=== PATIENT | male | born 1955 | race Caucasian/White ===

== ENCOUNTER 2019-01-21 10:02 | Day surgery (SDC) | payer MEDICARE, OTHER ==
[~2019-01-21 10:02] MED LIST: KETOROLAC TROMETHAMINE 0.45% 4 DROP/0.4 ML DROPERETTE OD PRN
[2019-01-21] MEDS: BESIFLOXACIN HCL 0.6% OPH SUSP 5 ML BOTTLE OD PRN ×4 (11:10→12:27)
[2019-01-21] MEDS: TROPICAMIDE 1% OPH SOLN 3 ML OD PRN ×3 (11:10→11:30)
[2019-01-21] MEDS: CYCLOPENTOLATE 0.2%/PHENYLEPHRINE 1% OPH SOLN 2 ML OD PRN ×3 (11:10→11:30)
[2019-01-21] MEDS: TETRACAINE HCL 0.5% OPH SOLN 4 ML OD PRN ×3 (11:11→11:52)
[2019-01-21] MEDS ORDERED: FENTANYL CITRATE INJ/PF 100 MCG/2 ML AMPUL ONE (11:33)
[2019-01-21] MEDS ORDERED: MIDAZOLAM 2 MG/2 ML INJ ONE (11:33)
[2019-01-21] MEDS: LIDOCAINE 4% INJ/PF (40 MG/ML) 5 ML AMPUL OD PRN ×2 (12:01)
[2019-01-21] MEDS: BUPIVACAINE HCL 0.75% INJ/PF (7.5 MG/1 ML) 10 ML SDV OD PRN ×2 (12:01)
[2019-01-21] MEDS: CHONDR SU A NA/HYALUR INTRAOC KIT (SURGICARE) ONE ×2 (12:09)
[2019-01-21] MEDS: EPINEPHRINE INJ/PF 1 MG/1 ML AMPULE ONE ×2 (12:09)
[2019-01-21] MEDS: LIDOCAINE 1%/PHENYLEPHRINE 1.5% 1 ML VIAL ONE ×2 (12:12)
[2019-01-21] MEDS: DORZOLAMIDE HCL 2%/TIMOLOL MALEAT 0.5% OPH SOLN 10 ML OD PRN ×2 (12:27)
--- NOTE | 2019-01-21 19:54 | [facility] OPERATIVE REPORT E ---
[facility] Operative Report NAME: LYNN DAVIDSON AGE: 63Y DATE OF SURGERY: 01/21/2019 ROOM: PREOPERATIVE DIAGNOSIS: CATARACT, RIGHT EYE. POSTOPERATIVE DIAGNOSIS: CATARACT, RIGHT EYE. OPERATION: Phacoemulsification with Symfony intraocular lens implant, right eye. SURGEON: DEBBIE CONTRERAS M.D. ANESTHESIA: Topical with MAC. INDICATIONS FOR SURGERY: Difficulty driving. PROCEDURE: The patient was brought to the Operating Room and placed on the operative table. Following tetracaine drops, topical anesthesia was administered. This consisted of instrument wipe pledgets soaked in a solution of 4% Xylocaine mixed with 0.75% Marcaine in a 1:2 ratio. A 2 x 1 cm pledget was placed in the superior fornix. A 1 x 1 cm pledget was placed in the inferior fornix. The eye was patched shut for 5 minutes. The patch was removed. The eye was sterilely prepped and draped in the usual manner. Lid speculum was placed in the eye. The pledgets were removed. 4-0 black silk sutures were placed around the superior and the inferior rectus muscles to be used as traction. A conjunctival peritomy was made at the 10 o'clock position. Hemostasis was obtained with bipolar cautery. A posterior limbal groove was created using a crescent knife and dissected anteriorly towards the cornea. A sharp point blade was used to create a paracentesis site at the 2 o'clock position. A 2.4 mm keratome was used to enter the anterior chamber through the groove. Viscoelastic was injected into the anterior chamber. An anterior capsulotomy was performed using Utrata forceps in a capsulorrhexis fashion. Hydrodissection and hydrodelineation were performed. Phacoemulsification was performed in [id number] technique. A total of 14.31 CDE phaco time was used. Following this, the I/A unit was used to remove residual cortex. Viscoelastic was injected into the capsular bag. Intraocular lens model ZXR00, 18.5 diopters, serial number [id number] was placed in the capsular bag. The I/A unit was used to remove residual viscoelastic. The wound was seen to be watertight under high and low pressure, and no sutures were placed. The intraocular lens was well centered. The pressure was adjusted in the eye to normal pressure. The 4-0 black silk sutures and lid speculum were removed. The eye was shielded after Besivance drops were placed. The patient tolerated the procedure well and was sent to the Recovery Room in good condition. 0.2 mL of phenylephrine and lidocaine was injected into the eye following the sideport incision. A drop of Cosopt was placed into the eye at the end of the surgery. DICTATING PHYSICIAN: DEBBIE CONTRERAS M.D. DICTATING PHYSICIAN: DEBBIE CONTRERAS M.D. [id number] PHY#: [id number] ID: [id number] JOB#: [id number] ACCT: [id number] cc:DEBBIE CONTRERAS M.D. > MTDD
--- NOTE | 2019-01-21 19:59 | [facility] DISCHARGE SUMMARY E ---
[facility] Discharge Summary NAME: LYNN DAVIDSON AGE: 63Y ADMITTED: 01/21/2019 DISCHARGED: 01/21/2019 HOSPITAL COURSE: The patient is a 63-year-old gentleman who underwent uneventful cataract extraction with Symfony intraocular lens implant, right eye, on 01/21/2019. He will be discharged to home. He is instructed to resume preoperative medications, take Tylenol as needed for discomfort, to keep his eye shielded, to use Pred-forte, Prolensa and moxifloxacin at 3 p.m. and 8 p.m. and to follow up in my office in 1 day. DICTATING PHYSICIAN: DEBBIE CONTRERAS M.D. [id number] PHY#: [id number] ID: [id number] JOB#: [id number] ACCT: [id number] cc:DEBBIE CONTRERAS M.D. >
== END 2019-01-21 13:15 | disposition home or self-care (01) ==
LOC: SC 10:02
PROVIDERS: ATTEND Ophthalmology
DX: H25.813 Combined forms of age-related cataract, bilateral (principal); H57.03 Miosis; H40.013 Open angle with borderline findings, low risk, bilateral; E11.9 Type 2 diabetes mellitus without complications; D64.9 Anemia, unspecified; K21.9 Gastro-esophageal reflux disease without esophagitis; K44.9 Diaphragmatic hernia without obstruction or gangrene; Z79.84 Long term (current) use of oral hypoglycemic drugs; Z87.891 Personal history of nicotine dependence; Z79.899 Other long term (current) drug therapy
CPT/HCPCS: 66984; 82962; 00142; V2788; J2250; J3490; J0171; J3010; J2370; 142

== ENCOUNTER 2019-02-11 07:29 | Day surgery (SDC) | payer OTHER ==
[~2019-02-11 07:29] MED LIST changes: +FENTANYL CITRATE INJ/PF 100 MCG/2 ML AMPUL ONE; -KETOROLAC TROMETHAMINE 0.45% 4 DROP/0.4 ML DROPERETTE OD PRN; +KETOROLAC TROMETHAMINE 0.45% 4 DROP/0.4 ML DROPERETTE OS PRN; +MIDAZOLAM 2 MG/2 ML INJ ONE
[2019-02-11] MEDS ORDERED: LIDOCAINE 1%/PHENYLEPHRINE 1.5% 1 ML VIAL ONE (08:26)
[2019-02-11] MEDS: BESIFLOXACIN HCL 0.6% OPH SUSP 5 ML BOTTLE OS PRN ×4 (08:28→09:29)
[2019-02-11] MEDS: TROPICAMIDE 1% OPH SOLN 3 ML OS PRN ×3 (08:28→08:48)
[2019-02-11] MEDS: CYCLOPENTOLATE 0.2%/PHENYLEPHRINE 1% OPH SOLN 2 ML OS PRN ×3 (08:28→08:48)
[2019-02-11] MEDS: TETRACAINE HCL 0.5% OPH SOLN 4 ML OS PRN ×4 (08:29→09:06)
[2019-02-11] MEDS: LIDOCAINE 4% INJ/PF (40 MG/ML) 5 ML AMPUL OS PRN ×2 (09:09)
[2019-02-11] MEDS: BUPIVACAINE HCL 0.75% INJ/PF (7.5 MG/1 ML) 10 ML SDV OS PRN ×2 (09:09)
[2019-02-11] MEDS: CHONDR SU A NA/HYALUR INTRAOC KIT (SURGICARE) ONE ×2 (09:19)
[2019-02-11] MEDS: EPINEPHRINE INJ/PF 1 MG/1 ML AMPULE ONE ×2 (09:19)
[2019-02-11] MEDS: LIDOCAINE 1% INJ-PF (10 MG/ML) 30 ML SDV ONE ×2 (09:19)
[2019-02-11] MEDS: DORZOLAMIDE HCL 2%/TIMOLOL MALEAT 0.5% OPH SOLN 10 ML OS PRN ×2 (09:29)
--- NOTE | 2019-02-11 14:03 | Operative Report ---
Operative Report-[facility] Operative Report: DATE OF SURGERY: 02/11/2019 PREOPERATIVE DIAGNOSIS: CATARACT, LEFT EYE. POSTOPERATIVE DIAGNOSIS: CATARACT, LEFT EYE. PROCEDURE PERFORMED: PHACOEMULSIFICATION WITH POSTERIOR CHAMBER INTRAOCULAR LENS, LEFT EYE. Intraocular Lens Model : Z XR 0 0 18.5 Total Phaco Time: 4.3 CDE SURGEON: DEBBIE CONTRERAS MD ANESTHESIA: TOPICAL WITH MAC. INDICATIONS FOR SURGERY: Difficultly driving at night PROCEDURE: The patient was brought to the Operating Room and placed on the operative table. Following tetracaine drops, topical anesthesia was administered. This consisted of instrument wipe pledgets soaked in a solution of 4% Xylocaine mixed with 0.75% Marcaine in a 1:2 ratio. A 2 x 1 cm pledget was placed in the superior fornix. A 1 x 1 cm pledget was placed in the inferior fornix. The eye was patched shut for 5 minutes. The patch was removed. The eye was sterilely prepped and draped in the usual manner. Lid speculum was placed in the eye. The pledgets were removed. 4-0 black silk sutures were placed around the superior and the inferior rectus muscles to be used as traction. A conjunctival peritomy was made at the 10 o'clock position. Hemostasis was obtained with bipolar cautery. A posterior limbal groove was created using a crescent knife and dissected anteriorly towards the cornea. A sharp point blade was used to create a paracentesis site at the 2 o'clock position. 0.2 cc non preserved Lidocaine was injected into the anterior chamber. A 2.4 mm keratome was used to enter the anterior chamber through the groove. Viscoelastic was injected into the anterior chamber. An anterior capsulotomy was performed using Utrata forceps in a capsulorrhexis fashion. Hydrodissection and hydrodelineation were performed. Phacoemulsification was performed in [id number] technique. Following this, the I/A unit was used to remove residual cortex. Viscoelastic was injected into the capsular bag. The Intraocular lens was placed in the capsular bag. The I/A unit was used to remove residual viscoelastic. The wound was seen to be watertight under high and low pressure, and no sutures were placed. The intraocular lens was well centered. The pressure was adjusted in the eye to normal pressure. The 4-0 black silk sutures and lid speculum were removed. The eye was shielded after Besivance and Cosopt drops were placed. The patient tolerated the procedure well and was sent to the Recovery Room in good condition.
--- NOTE | 2019-02-11 14:04 | PDOC DISCHARGE SUMMARY ---
Discharge Summary-[facility] Discharge Summary: DATE: 02/11/2019 FINAL DIAGNOSIS: CATARACT, LEFT EYE PROCEDURE: Cataract extraction with Symfony multifocal intraocular lens implant left eye HOSPITAL COURSE: The patient will be discharged to home. The patient is instructed to resume preoperative medications, take Tylenol as needed for discomfort, to keep the eye shielded, They should use the prescribed antibiotic, NSAID, and steroid at 3 PM and 8 PM, and to follow up in my office in 1 day.
== END 2019-02-11 10:25 | disposition home or self-care (01) ==
LOC: SC 07:29
PROVIDERS: ATTEND Ophthalmology
DX: H25.812 Combined forms of age-related cataract, left eye (principal); Z96.1 Presence of intraocular lens; H57.03 Miosis; K21.9 Gastro-esophageal reflux disease without esophagitis; D64.9 Anemia, unspecified; K44.9 Diaphragmatic hernia without obstruction or gangrene; R73.03 Prediabetes; Z79.899 Other long term (current) drug therapy
CPT/HCPCS: 66984; 82962; 00142; V2788; J2250; J3490 ×4; J0171; J3010; J2370; 142